=== PATIENT | female | born 2005 | race Caucasian/White ===

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

== ENCOUNTER 2024-09-11 16:44 | Emergency (ER) | payer OTHER ==
[~2024-09-11] VITALS: Ht 167.6 cm; Wt 63.0 kg
[2024-09-11] MEDS ORDERED: FAMOTIDINE 20 MG TAB PT ONE (17:15)
[2024-09-11] MEDS ORDERED: diphenhydrAMINE HCL 50 MG CAP PO ONE (17:15)
[2024-09-11 17:18] VITALS: BP 115/79
== END 2024-09-11 17:18 | disposition home or self-care (01) ==
LOC: ED 16:44
DX: L50.0 Allergic urticaria (principal)
CPT/HCPCS: 99283; Q0163

== ENCOUNTER 2025-04-03 10:25 | Emergency (ER) | payer OTHER ==
[~2025-04-03] VITALS: Ht 167.6 cm; Wt 65.4 kg
[2025-04-03] MEDS ORDERED: ARIPIPRAZOLE10 MG PO (10:47)
[2025-04-03] MEDS ORDERED: SERTRALINE HCL100 MG PO (10:47)
[2025-04-03] MEDS ORDERED: ABILIFY10 MG PO (10:47)
[2025-04-03] MEDS ORDERED: BUSPIRONE HCL5 MG PO (10:47)
[2025-04-03] MEDS ORDERED: PROPRANOLOL HCL60 MG PO (10:47)
[2025-04-03 12:44] VITALS: BP 100/75
[2025-04-03] MEDS ORDERED: LIDOCAINE HCL 4% 1 EACH PATCH TD ONE (12:45)
[2025-04-03] MEDS ORDERED: LIDOCAINE PATCH REMOVAL 1 EA TD SCH (21:00)
== END 2025-04-03 12:45 | disposition home or self-care (01) ==
LOC: ED 10:25
DX: S20.212A Contusion of left front wall of thorax, initial encounter (principal); S50.02XA Contusion of left elbow, initial encounter; Z79.899 Other long term (current) drug therapy; W55.12XA Struck by horse, initial encounter; Y99.0 Civilian activity done for income or pay
CPT/HCPCS: 73080; 73110; 99283; A9270